=== PATIENT | male | born 1950 | race Caucasian/White ===

== ENCOUNTER 2016-07-17 11:47 | Emergency (ER) | payer OTHER ==
[2016-07-17] MEDS ORDERED: DOXYCYCLINE 100 MG TABLET PO STA (12:32)
[2016-07-17] MEDS ORDERED: DOXYCYCLINE 100 MG TABLET PO ONE (12:44)
== END 2016-07-17 13:00 | disposition home or self-care (01) ==
DX: L27.1 Localized skin eruption due to drugs and medicaments taken internally (principal); T37.0X5A Adverse effect of sulfonamides, initial encounter; I10 Essential (primary) hypertension; J44.9 Chronic obstructive pulmonary disease, unspecified; J45.909 Unspecified asthma, uncomplicated; F17.200 Nicotine dependence, unspecified, uncomplicated; I25.2 Old myocardial infarction; Z86.73 Personal history of transient ischemic attack (TIA), and cerebral infarction without residual deficits; Z86.718 Personal history of other venous thrombosis and embolism; Z79.82 Long term (current) use of aspirin
CPT/HCPCS: 99283; A9270

== ENCOUNTER 2016-07-25 | Outpatient (CLI) | payer OTHER | END 2016-07-25 22:54 | disposition critical access hospital (66) | CPT/HCPCS: A0425; A0429 ==

== ENCOUNTER 2016-07-25 23:11 | Emergency (ER) | payer OTHER ==
[2016-07-26] MEDS ORDERED: POTASSIUM BICARB 25 MEQ TABLET PO STA (01:01)
[2016-07-26] MEDS ORDERED: POTASSIUM BICARB 25 MEQ TABLET PO ONE (01:05)
[2016-07-26] MEDS ORDERED: ACETAMINOPHEN 325 MG TABLET PO STA (01:56)
[2016-07-26] MEDS ORDERED: ACETAMINOPHEN 325 MG TABLET PO ONE (02:09)
== END 2016-07-26 02:16 | disposition home or self-care (01) ==
DX: S42.035A Nondisplaced fracture of lateral end of left clavicle, initial encounter for closed fracture (principal); S22.32XA Fracture of one rib, left side, initial encounter for closed fracture; W19.XXXA Unspecified fall, initial encounter; Z86.711 Personal history of pulmonary embolism; Z86.718 Personal history of other venous thrombosis and embolism; Z79.82 Long term (current) use of aspirin; I10 Essential (primary) hypertension; F17.200 Nicotine dependence, unspecified, uncomplicated
CPT/HCPCS: 36415; 70450; 73030; 80053; 83690; 83735; 85025; 99283; 99284; A9270

== ENCOUNTER 2016-07-28 | Outpatient (CLI) | payer OTHER | END 2016-07-28 12:46 | disposition critical access hospital (66) | DX: M62.81 Muscle weakness (generalized) (principal) | CPT/HCPCS: A0425; A0429 ==

== ENCOUNTER 2016-07-28 13:00 | Inpatient (IN) | payer OTHER ==
[2016-07-28] MEDS ORDERED: SODIUM CHLORIDE 0.9% 1,000 ML IV ONE ×3 (13:57→18:47)
[2016-07-28] MEDS ORDERED: AMPICILLIN/SULBACTAM 3 GM in SODIUM CHLORIDE 0.9% MINIBAG 100 ML IV STA (15:16)
[2016-07-28] MEDS ORDERED: VANCOMYCIN INJ 1 GM in SODIUM CHLORIDE 0.9% 250 ML IV STA (15:16)
[2016-07-28] MEDS ORDERED: PIPERACILLIN/TAZOBACTAM 3.375 GM in SODIUM CHLORIDE 0.9% MINIBAG 100 ML IV STA (15:23)
[2016-07-28] MEDS ORDERED: PIPERACILLIN/TAZOBACTAM 4.5 GM in SODIUM CHLORIDE 0.9% MINIBAG 100 ML IV STA (15:51)
[2016-07-28] MEDS ORDERED: HYDROcod/ACETAM 5/325 MG TABLET PO PRN (15:51)
[2016-07-28] MEDS ORDERED: ACETAMINOPHEN 325 MG TABLET PO PRN (15:51)
[2016-07-28] MEDS ORDERED: ONDANSETRON 4 MG/2 ML VIAL IVP PRN (15:51)
[2016-07-28] MEDS ORDERED: SODIUM CHLORIDE FLUSH 0.9% 10 ML SYRINGE IVP PRN (15:51)
[2016-07-28] MEDS ORDERED: VANCOMYCIN PER PHARMACY 1 GM in SODIUM CHLORIDE 0.9% 250 ML IV SCH (16:00)
[2016-07-28] MEDS: NS W/20 MEQ KCL 1,000 ML IV SCH (18:09)
[2016-07-28] MEDS: VANCOMYCIN INJ 1 GM in SODIUM CHLORIDE 0.9% 250 ML IV SCH (18:09)
[2016-07-28] MEDS: SODIUM CHLORIDE FLUSH 0.9% 10 ML SYRINGE IVP SCH (21:02)
[2016-07-29] MEDS: VANCOMYCIN INJ 1 GM in SODIUM CHLORIDE 0.9% 250 ML IV SCH ×3 (01:04→17:40)
[2016-07-29] MEDS: NS W/20 MEQ KCL 1,000 ML IV SCH ×3 (01:04→21:34)
[2016-07-29] MEDS: SODIUM CHLORIDE FLUSH 0.9% 10 ML SYRINGE IVP SCH ×3 (06:11→21:35)
[2016-07-29] MEDS: POLYETHYLENE GLYCOL 3350 17 GM PACKET PO SCH (09:05)
[2016-07-29] MEDS: ASPIRIN EC 81 MG TABLET PO SCH (11:01)
[2016-07-29] MEDS: POTASSIUM CHLORIDE 10 MEQ CAPSULE PO SCH (11:01)
[2016-07-29] MEDS: CARVEDILOL 3.125 MG TABLET PO SCH ×2 (11:01→21:35)
[2016-07-29] MEDS ORDERED: CALAMINE/ZINC OXIDE 118 ML BOTTLE TOP PRN (13:24)
[2016-07-30] MEDS: VANCOMYCIN INJ 1 GM in SODIUM CHLORIDE 0.9% 250 ML IV SCH ×3 (01:07→18:20)
[2016-07-30] MEDS: SODIUM CHLORIDE FLUSH 0.9% 10 ML SYRINGE IVP SCH ×3 (07:19→21:29)
[2016-07-30] MEDS: POTASSIUM CHLORIDE 10 MEQ CAPSULE PO SCH (08:31)
[2016-07-30] MEDS: POLYETHYLENE GLYCOL 3350 17 GM PACKET PO SCH (08:31)
[2016-07-30] MEDS: ASPIRIN EC 81 MG TABLET PO SCH (08:31)
[2016-07-30] MEDS: CARVEDILOL 3.125 MG TABLET PO SCH ×2 (08:31→21:26)
[2016-07-30] MEDS ORDERED: COAL TAR TOP PRN (09:00)
[2016-07-30] MEDS: NS W/20 MEQ KCL 1,000 ML IV SCH (21:28)
[2016-07-31] MEDS: VANCOMYCIN INJ 1 GM in SODIUM CHLORIDE 0.9% 250 ML IV SCH ×3 (01:09→16:04)
[2016-07-31] MEDS: SODIUM CHLORIDE FLUSH 0.9% 10 ML SYRINGE IVP SCH ×2 (06:29→15:36)
[2016-07-31] MEDS: NS W/20 MEQ KCL 1,000 ML IV SCH ×2 (06:52→20:38)
[2016-07-31] MEDS: POTASSIUM CHLORIDE 10 MEQ CAPSULE PO SCH (10:32)
[2016-07-31] MEDS: ASPIRIN EC 81 MG TABLET PO SCH (10:32)
[2016-07-31] MEDS: POLYETHYLENE GLYCOL 3350 17 GM PACKET PO SCH (10:32)
[2016-07-31] MEDS: CARVEDILOL 3.125 MG TABLET PO SCH ×2 (10:32→20:38)
[2016-08-01] MEDS: VANCOMYCIN INJ 1 GM in SODIUM CHLORIDE 0.9% 250 ML IV SCH ×2 (00:10→08:05)
[2016-08-01] MEDS: SODIUM CHLORIDE FLUSH 0.9% 10 ML SYRINGE IVP SCH ×3 (00:18→14:34)
[2016-08-01] MEDS: CARVEDILOL 3.125 MG TABLET PO SCH (08:05)
[2016-08-01] MEDS: POTASSIUM CHLORIDE 10 MEQ CAPSULE PO SCH (08:05)
[2016-08-01] MEDS: ASPIRIN EC 81 MG TABLET PO SCH (08:05)
[2016-08-01] MEDS: NS W/20 MEQ KCL 1,000 ML IV SCH ×3 (08:14→11:38)
[2016-08-01] MEDS: POLYETHYLENE GLYCOL 3350 17 GM PACKET PO SCH (09:42)
== END 2016-08-01 18:00 | disposition home or self-care (01) | DRG 872 ==
DX: A41.9 Sepsis, unspecified organism (principal); L03.116 Cellulitis of left lower limb; L03.115 Cellulitis of right lower limb; J44.9 Chronic obstructive pulmonary disease, unspecified; L40.9 Psoriasis, unspecified; I10 Essential (primary) hypertension; I25.10 Atherosclerotic heart disease of native coronary artery without angina pectoris; Z86.711 Personal history of pulmonary embolism; Z86.718 Personal history of other venous thrombosis and embolism; Z86.73 Personal history of transient ischemic attack (TIA), and cerebral infarction without residual deficits; R29.6 Repeated falls; I25.2 Old myocardial infarction; F17.200 Nicotine dependence, unspecified, uncomplicated; Z80.9 Family history of malignant neoplasm, unspecified; T78.40XA Allergy, unspecified, initial encounter; Z66 Do not resuscitate; Z79.82 Long term (current) use of aspirin; J45.909 Unspecified asthma, uncomplicated; I73.9 Peripheral vascular disease, unspecified

== ENCOUNTER 2016-10-10 17:26 | Outpatient (CLI) | payer OTHER | END 2016-10-10 17:27 | disposition critical access hospital (66) | DX: R53.1 Weakness (principal) | CPT/HCPCS: A0425; A0429 ==

== ENCOUNTER 2016-10-10 17:45 | Inpatient (IN) | payer OTHER ==
[2016-10-10] MEDS ORDERED: DOXYCYCLINE INJ 100 MG in SODIUM CHLORIDE 0.9% MINIBAG 100 ML IV STA (20:40)
[2016-10-10] MEDS ORDERED: PROCHLORPERAZINE 10 MG/2 ML VIAL IVP PRN (21:00)
[2016-10-10] MEDS ORDERED: ACETAMINOPHEN 325 MG TABLET PO PRN (21:00)
[2016-10-10] MEDS ORDERED: SODIUM CHLORIDE FLUSH 0.9% 10 ML SYRINGE IVP PRN (21:00)
[2016-10-10] MEDS ORDERED: oxyCODONE 5 MG TABLET PO PRN ×2 (21:00)
[2016-10-10] MEDS ORDERED: ONDANSETRON 4 MG/2 ML VIAL IVP PRN (21:00)
[2016-10-10] MEDS ORDERED: ZOLPIDEM 5 MG TABLET PO PRN (21:00)
[2016-10-10] MEDS ORDERED: POTASSIUM CHLORIDE 20 MEQ TABLET PO STA (21:05)
[2016-10-10] MEDS ORDERED: POTASSIUM CHLORIDE 20 MEQ TABLET PO ONE (22:44)
[2016-10-10] MEDS: SODIUM CHLORIDE 0.9% 1,000 ML IV SCH (22:47)
[2016-10-10] MEDS: SODIUM CHLORIDE FLUSH 0.9% 10 ML SYRINGE IVP SCH (22:47)
[2016-10-11] MEDS: SODIUM CHLORIDE 0.9% 1,000 ML IV SCH (06:36)
[2016-10-11] MEDS: SODIUM CHLORIDE FLUSH 0.9% 10 ML SYRINGE IVP SCH ×2 (06:36→13:36)
[2016-10-11] MEDS ORDERED: PANTOPRAZOLE 40 MG TABLET PO SCH (07:00)
[2016-10-11] MEDS ORDERED: MAGNESIUM SULFATE 1 GM in SODIUM CHLORIDE 0.9% 50 ML IV ONE (07:33)
[2016-10-11] MEDS ORDERED: SACCHAROMYCES BOULARDII 250 MG CAPSULE PO SCH (08:00)
[2016-10-11] MEDS ORDERED: POTASSIUM CHLORIDE INJ 40 MEQ in SODIUM CHLORIDE 0.9% 480 ML IV ONE (08:42)
[2016-10-11] MEDS: POTASSIUM CHLORIDE 20 MEQ TABLET PO SCH ×2 (08:45→13:34)
[2016-10-11] MEDS ORDERED: POLYETHYLENE GLYCOL 3350 17 GM PACKET PO SCH (09:00)
[2016-10-11] MEDS ORDERED: DOXYCYCLINE INJ 100 MG in SODIUM CHLORIDE 0.9% MINIBAG 100 ML IV SCH (11:00)
== END 2016-10-11 17:40 | DRG 603 ==
DX: L03.116 Cellulitis of left lower limb (principal); I69.954 Hemiplegia and hemiparesis following unspecified cerebrovascular disease affecting left non-dominant side; L03.115 Cellulitis of right lower limb; R53.1 Weakness; E87.6 Hypokalemia; E86.0 Dehydration; R41.82 Altered mental status, unspecified; S81.802A Unspecified open wound, left lower leg, initial encounter; S81.801A Unspecified open wound, right lower leg, initial encounter; S62.367A Nondisplaced fracture of neck of fifth metacarpal bone, left hand, initial encounter for closed fracture; F17.210 Nicotine dependence, cigarettes, uncomplicated; G40.909 Epilepsy, unspecified, not intractable, without status epilepticus; I10 Essential (primary) hypertension; I25.10 Atherosclerotic heart disease of native coronary artery without angina pectoris; I73.9 Peripheral vascular disease, unspecified; R15.9 Full incontinence of feces; I25.2 Old myocardial infarction; Z79.82 Long term (current) use of aspirin; Z79.02 Long term (current) use of antithrombotics/antiplatelets; Z79.899 Other long term (current) drug therapy; Z86.718 Personal history of other venous thrombosis and embolism; Z87.828 Personal history of other (healed) physical injury and trauma; Z74.2 Need for assistance at home and no other household member able to render care; W19.XXXA Unspecified fall, initial encounter; Z91.81 History of falling; Y93.9 Activity, unspecified; Y92.009 Unspecified place in unspecified non-institutional (private) residence as the place of occurrence of the external cause; Y99.9 Unspecified external cause status; X58.XXXA Exposure to other specified factors, initial encounter; Y92.9 Unspecified place or not applicable